=== PATIENT | female | born 1975 | race Caucasian/White ===

== ENCOUNTER → 2020-09-15 09:19 | Outpatient (CLI) | payer BC, SELFPAY ==
--- NOTE | ~2020-09-15 | XR_ITS ---
XR chest 2V DATE: 09/15/2020 09:37 INDICATION: Infectious pneumonia TECHNIQUE: PA and lateral views COMPARISON: 03/18/2020 PA chest FINDINGS: Normal heart size. No hilar or mediastinal enlargement. The lungs are clear of infiltrate o r consolidation. No pleural effusion or pulmonary vascular congestion or pneumothorax. Status post anterior cervical spine fusion at C6-7. IMPRESSION: No active cardiopulmonary disease Reviewed, dictated and finalized at location [facility].
== END ==
PROVIDERS: PCP Internal Medicine; Visit Provider Internal Medicine
DX: J18.9 Pneumonia, unspecified organism (principal)
CPT/HCPCS: 71046

== ENCOUNTER 2020-12-04 10:18 | Outpatient (CLI) | payer BC, SELFPAY ==
--- NOTE | 2020-12-04 14:08 | P.PCNPFT_ITS ---
PFT Procedure Performed PFT Procedure Performed Spirometry with Pre/Post Bronchodilator Plethysmography (Lung Vol) Diffusing Cap (DLCO) Flow Vol Loop PFT Interpretation This is a pulmonary function test with pre and post-bronchodilator spirometry, plethysmography and diffusing capacity. The test was performed and results interpreted in accordance with the 2019 and 2005 ATS/ERS Task Force guidelines respectively using the Global Lung Function Initiative-2012 reference equations. Patient demonstrated good effort and cooperation. Reproducibility criteria were met. The quality of the pre bronchodilator spirometry maneuver was Grade A and post bronchodilator spirometry maneuver was Grade B. Of note the patient had coughing throughout the entire test. Findings: Spirometry: The contour of the inspiratory and expiratory flow tracing are normal. The pre bronchodilator FVC is 3.22 L, 112% predicted. The pre bro nchodilator FEV1 is 2.88 L, 121% predicted. The FEV1: FVC ratio was 89%. The post bronchodilator FVC is 3.25 L, representing 1% increase. The post bronchodilator FEV1 is 2.90 L, representing a 1% increase. Plethysmography: The total lung capacity is 4.61 L, 112% predicted. The functional residual capacity is 2.49 L, 111% predicted. The residual volume is 1.39 L, 104% predicted. Diffusing capacity: The absolute diffusion capacity is 19.8, 94% predicted. The diffusing capacity corrected for alveolar volume is 4.75, 95% predicted. Impression: The spirometry is normal without evidence of an obstructive abnormality. There is no significant improvement after inhaling a single dose of albuterol. The lung volumes are normal. The diffusing capacity is normal. There are no prior studies for comparison
== END 2020-12-04 10:19 | disposition home or self-care (01) ==
PROVIDERS: PCP Internal Medicine; Visit Provider Allergy & Immunology
DX: J45.20 Mild intermittent asthma, uncomplicated (principal)
CPT/HCPCS: 94060; 94726; 94729

== ENCOUNTER → 2021-06-11 14:53 | Outpatient (CLI) | payer BC, SELFPAY ==
--- NOTE | ~2021-06-11 | XR_ITS ---
XR sacroiliac joints min 3V DATE: 06/11/2021 16:07 INDICATION: Acute right low back pain, right sciatica TECHNIQUE: 6 views COMPARISON: None FINDINGS: The sacroiliac joints are normal. No erosive change or ankylosis. No fracture or dislocatio n. No degenerative changes evident. The pubic symphysis is intact. No sacral fracture or bone destruction. Hip joint spaces appear symmetric and relatively well preserv ed. IMPRESSION: Negative sacroiliac joints Reviewed, dictated and finalized at [facility]. Reviewed, dictated and finalized at location A. IMPRESSION: Negative sacroiliac joints
== END ==
PROVIDERS: PCP Internal Medicine; Visit Provider Internal Medicine
DX: M54.41 Lumbago with sciatica, right side (principal)
CPT/HCPCS: 72202

== ENCOUNTER → 2021-07-20 10:34 | Outpatient (CLI) | payer BC, SELFPAY ==
--- NOTE | ~2021-07-20 | XR_ITS ---
EXAMINATION: XR chest 2V 07/20/2021 10:58 INDICATION: Cough PROCEDURE: 2 view chest COMPARISON: 07/19/2021 FINDINGS: The lungs are clear. The cardiomediastinal silhouette is within normal limits. There are no pleural effusions. There is no pneumothorax suspected. IMPRESSION: 1: NO ACUTE CARDIOPULMONARY DISEASE. Reviewed, dictated and finalized at location A.
== END ==
PROVIDERS: PCP Internal Medicine; Visit Provider Internal Medicine
DX: R05.9 Cough, unspecified (principal)
CPT/HCPCS: 71046

== ENCOUNTER 2021-12-14 13:28 | Outpatient (CLI) | payer BC, SELFPAY ==
--- NOTE | ~2021-12-14 | CT_ITS ---
EXAMINATION: CT abdomen wo/w con DATE: 12/14/2021 15:33 INDICATION: Congenital adrenal hyperplasia TECHNIQUE: Computed tomography (CT) of the abdomen and pelvis was performed without and with 100 mL O mnipaque-350 intravenous contrast. Automated exposure control and iterative reconstruction technique were employed. The dose-length product was 468.03 mGy-cm. COMPARISON: None FINDINGS: Lung bases are clear. Heart size is normal. No pericardial or pleural effusion. Liver, gallbladder, s pleen, pancreas, right adrenal gland and bilateral kidneys are normal. 2.4 cm left adrenal mass with Hounsfield units on pre-, portal venous and 15 minute delayed images of 34, 145 and 70 respectively y ielding an absolute washout percentage of 68% and a relative washout percentage of 52%. The washout c haracteristics would be consistent with adrenal adenoma however given the relatively high enhancement would also include pheochromocytoma on the differential which occasionally can demonstrate similar d egree of washout. Visualized portions of the bowels are unremarkable with no wall thickening or obstr uction. The larger vessels in the abdomen including the abdominal aorta are normal. No pathologically enlarged abdominal lymphadenopathy. Bones are unremarkable. IMPRESSION: 1. 2.4 cm left adrenal mass with washout characteristics consistent with adrenal adenoma although giv en the relatively high contrast enhancement in the portal venous phase would also include pheochromoc ytoma on the differential. Reviewed, dictated and finalized at location A. IMPRESSION: 1. 2.4 cm left adrenal mass with washout characteristics consistent with adrena l adenoma although given the relatively high contrast enhancement in the portal venous phase would also include pheochromocytoma on the differential.
== END 2021-12-14 13:29 | disposition home or self-care (01) ==
LOC: CHSIMG 13:29
PROVIDERS: PCP Internal Medicine
DX: E25.0 Congenital adrenogenital disorders associated with enzyme deficiency (principal)
CPT/HCPCS: 74170; Q9967